=== PATIENT | male | born 1975 | race Two or more races ===

== ENCOUNTER 2018-11-13 12:39 | Day surgery (SDC) | payer OTHER ==
[~2018-11-13 12:39] MED LIST: CEFAZOLIN 2 GM/D5W RTU 2 GM/50 ML RTUPB IV PRN
[2018-11-13] MEDS ORDERED: CEFAZOLIN 2 GM/D5W RTU 2 GM/50 ML RTUPB IV ONE (13:25)
[2018-11-13] MEDS ORDERED: MIDAZOLAM 2 MG/2 ML INJ ONE (14:47)
[2018-11-13] MEDS ORDERED: KETOROLAC TROMETHAMINE 60 MG/2 ML SDV ONE (14:47)
[2018-11-13] MEDS ORDERED: FENTANYL CITRATE INJ/PF 100 MCG/2 ML AMPUL ONE (14:47)
[2018-11-13] MEDS ORDERED: DEXAMETHASONE SOD PHOSPHATE INJ 4 MG/1 ML VIAL ONE (14:47)
[2018-11-13] MEDS ORDERED: ONDANSETRON HCL INJ/PF 4 MG/2 ML SDV ONE (14:47)
[2018-11-13] MEDS ORDERED: ACETAMINOPHEN 1,000 MG/100 ML RTUPB IV ONE (14:48)
[2018-11-13] MEDS ORDERED: LIDOCAINE 0.5% INJ-PF (5 MG/ML) 50 ML SDV ONE (14:48)
[2018-11-13] MEDS ORDERED: PROPOFOL INJ 200 MG/20 ML VIAL IV ONE (14:48)
[2018-11-13] MEDS ORDERED: LIDOCAINE 1% INJ-PF (10 MG/ML) 30 ML SDV ONE (14:59)
[2018-11-13] MEDS ORDERED: MORPHINE SULFATE 10 MG/ML INJ IV PRN (15:23)
[2018-11-13] MEDS ORDERED: ONDANSETRON HCL INJ/PF 4 MG/2 ML SDV IV PRN ×2 (15:23→16:17)
[2018-11-13] MEDS ORDERED: MEPERIDINE HCL/PF INJ 25 MG/1 ML DISP.SYRIN IV PRN (15:23)
[2018-11-13] MEDS ORDERED: PROMETHAZINE HCL INJ 25 MG/1 ML VIAL IV PRN ×2 (15:23)
[2018-11-13] MEDS ORDERED: OXYCODONE-ACETAMINOPHEN 5-325 MG TABLET PO PRN ×3 (15:23→16:16)
[2018-11-13] MEDS ORDERED: DIPHENHYDRAMINE HCL 50 MG/ML VIAL IV PRN (15:23)
[2018-11-13] MEDS ORDERED: FENTANYL CITRATE INJ/PF 100 MCG/2 ML AMPUL IV PRN ×3 (15:23)
--- NOTE | 2018-11-13 15:59 | OPERATIVE REPORT E ---
Operative Report NAME: ROSMERY MARTÍNEZ : 1975 AGE: 43Y DATE OF SURGERY: 11/13/2018 ROOM: PREOPERATIVE DIAGNOSES: 1. Left index soft tissue mass. 2. Left index trigger finger. POSTOPERATIVE DIAGNOSES: 1. Left index soft tissue mass. 2. Left index trigger finger. PROCEDURE: 1. Left index excision of soft tissue mass. 2. Left index trigger finger release. SURGEON: ALCIDES HOLLIS M.D. ANESTHESIA: Local with MAC anesthesia. ESTIMATED BLOOD LOSS: Minimal. COMPLICATIONS: None. INDICATIONS: The patient is a 43-year-old man with what started out as a mass in the palm of his hand in line with the flexor sheath. Subsequently he developed active triggering of the digit. DESCRIPTION OF PROCEDURE: Following the induction of a local block administered by the surgeon and MAC anesthetic supplied by Anesthesia, the patient was positioned supine on the operating room table. Bony prominences were padded. The left upper extremity was sterilely prepped with ChloraPrep and draped in standard fashion. The arm was exsanguinated and the tourniquet inflated to 100 mm above systolic pressure. Transverse incision was made at the distal palmar crease. Sharp dissection through skin and blunt dissection down through the subcutaneous tissue. Care was taken to identify and protect digital arteries and nerves. The mass was identified, had the consistency of a ganglion cyst of tendon sheath. It was shelled out and sent to pathology. The A1 jeanette was then transected and under 3.5 loupe magnification both tendons were pulled out from the wound. Tendons were in good condition with no fraying. Finger was taken through a full range of motion. There was no locking or compression within the sheath. The wound was irrigated and the skin reapproximated with nylon suture. A bulky sterile dressing was then applied. The patient tolerated the procedure well without complications and was brought to recovery in stable condition. DICTATING PHYSICIAN: ALCIDES HOLLIS M.D. [id number] PHY#: [id number] ID: [id number] JOB#: [id number] ACCT: [id number] cc:ALCIDES HOLLIS M.D. >
[2018-11-13 18:45] VITALS: BP 108/75
== END 2018-11-13 17:35 | disposition home or self-care (01) ==
LOC: OROUT 12:39
PROVIDERS: ATTEND Orthopaedic Surgery
DX: M65.322 Trigger finger, left index finger (principal); D21.12 Benign neoplasm of connective and other soft tissue of left upper limb, including shoulder
CPT/HCPCS: 88304 ×2; 26055; 26115; J2250; J1100; J1885; J3010; J3490 ×2; J2405; J2704; J0690; J0131; 1810